=== PATIENT | male | born 1955 | race Caucasian/White ===

== ENCOUNTER → 2016-06-10 | Outpatient (CLI) | payer OTHER ==
--- NOTE | ~2016-06-10 | P ---
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 Plans are in progress for surgical resection in June. He has never had a colonoscopy, presents for colonoscopy prior to his surgery. PREOPERATIVE DIAGNOSIS: Colovesical fistula. POSTOPERATIVE DIAGNOSIS: Colovesical fistula. MEDICATIONS: Deep sedation with propofol per anesthesia. SPECIMEN: None. ESTIMATED BLOOD LOSS: None. PROCEDURE: Colonoscopy to cecum and terminal ileum. FINDINGS: Prior to propofol sedation, procedure of colonoscopy discussed with the patient as well as potential risks and its complications. He indicates he understands and desires to proceed. DESCRIPTION OF PROCEDURE: With the patient in left lateral decubitus position, digital examination was completed which revealed no abnormalities. Subsequently, the [employer] video colonoscope was introduced into the rectum and advanced under direct vision to the cecum. This was done with some difficulty. He has a tortuous redundant colon. The cecum was reached and identified by the ileocecal valve and the appendiceal orifice. I was able to visualize the distal segment of terminal ileum, which was inspected and noted to be unremarkable. No inflammatory lesions were seen in the distal terminal ileum. At that point, the scope was withdrawn and careful circumferential views obtained. Upon slow withdrawal of the scope, the prep was noted to be limited. There was retained fecal material which was mostly liquid with particular material. With a very vigorous irrigation and suctioning, we were able to salvage the prep. Reasonably good views were obtained of the wall of the colonic mucosa. However, due to the fact that a small amount of material remaining could not remove, a [facility] [address] [place] [address] PROCEDURE REPORT Name: ROGER RUIZ Room #: REG LARRY Aguilar.#: [id number] Admission: 06/10/16 Attend Phys: Frank Andino MD Discharge: Date of : 51 Report #: [id number] very small lesion could have been overlooked up. However, upon withdrawal of the scope other than tortuous colon, the mucosa was otherwise unremarkable. I did not see diverticula anywhere in the colon. No mass lesions were seen. No polyps were seen. Bleeding lesions were not seen. Ulcers were not seen. Within the mild limitations of prep, no abnormalities were seen. In particular, the sigmoid colon was carefully examined. I could not identify diverticular disease in the sigmoid colon. The scope was withdrawn in the rectum and was cleaned up as well as possible. No abnormalities were seen. Scope was withdrawn. The patient tolerated the procedure well. CONDITION OF THE PATIENT UPON DISCHARGE: Following procedure, the patient drowsy, aroused, conversant and will be discharged home when fully ambulatory. INSTRUCTIONS TO THE PATIENT AND FAMILY AT THE TIME OF DISCHARGE: The patient with colovesical fistula. Plans are in progress for surgery. I do not find any lesions. In particular, I do not find diverticular disease or neoplastic disease. He will follow up with Dr. Jhon Everett and Dr. Roger Gomez. <ELECTRONICALLY SIGNED> By: Frank Andino MD 07/01/16 0949 [id number] Frank Andino MD /nt
== END ==
LOC: GI 09:51 → OR 09:51
DX: K63.2 Fistula of intestine (principal)
CPT/HCPCS: 62110; 62900